=== PATIENT | female | born 1965 | race Caucasian/White ===

== ENCOUNTER 2019-03-14 12:09 | Outpatient (CLI) | payer OTHER ==
--- NOTE | 2019-03-14 15:01 | CT ---
CT TEMPORAL BONE WITHOUT CONTRAST: INDICATIONS: Left side hearing loss. Otitis externa. COMPARISON: No prior imaging comparison. FINDINGS: Right temporal bone: The vestibular cochlear apparatus and semicircular canals are unremarkable. The intratemporal course of the facial nerve is normal in appearance. The ossicular chain is intact. No significant middle ear opacification. The mastoid air cells are patent. The vestibular and cochlear a queducts are of normal caliber. Mild debris is seen at the external auditory canal. Left temporal bone: The vestibular cochlea apparatus and semicircular canals are grossly unremarkabl e. There is a moderate mastoid effusion and there is mild opacification of the middle ear cavity. Fin dings do partially obstruct visualization of the course of the intratemporal facial nerve. The ossicu lar chain is intact. There is thickening and retraction of the tympanic membrane. Soft tissue thicken ing of the lining of the external auditory canal is present, in keeping with history of otitis joist setter a. The vestibular and cochlear aqueducts are of normal caliber. IMPRESSION: 1. Left mastoid effusion and mild opacification of the left middle ear cavity. This may relate to acu te otomastoiditis. There is also thickening of the lining of the soft tissues of the left external au ditory canal, in keeping with the clinical history of otitis externa. 2. Thickening and retraction of the tympanic membrane of the left ear. POS: C
== END 2019-03-14 12:10 | disposition home or self-care (01) ==
LOC: CT 12:09
PROVIDERS: ATTEND Otolaryngology Otolaryngic Allergy
DX: H60.392 Other infective otitis externa, left ear (principal); H72.92 Unspecified perforation of tympanic membrane, left ear; H73.892 Other specified disorders of tympanic membrane, left ear; H74.8X2 Other specified disorders of left middle ear and mastoid
CPT/HCPCS: 70480

== ENCOUNTER 2022-08-15 13:47 | Outpatient (CLI) | payer OTHER | END 2022-08-15 13:48 | disposition home or self-care (01) | LOC: BICRAD 13:47 | PROVIDERS: ATTEND Student in an Organized Health Care Education/Training Program | DX: R05.3 Chronic cough (principal) | CPT/HCPCS: 71046 ==

== ENCOUNTER 2022-09-08 13:25 | Outpatient (CLI) | payer OTHER | END 2022-09-08 13:26 | disposition home or self-care (01) | LOC: CT 13:25 | PROVIDERS: ATTEND Student in an Organized Health Care Education/Training Program | DX: R05.3 Chronic cough (principal) | CPT/HCPCS: 71260 ==

== ENCOUNTER 2022-09-15 11:35 | Outpatient (CLI) | payer OTHER | END 2022-09-15 11:36 | disposition home or self-care (01) | LOC: BICMAMMO 11:35 | PROVIDERS: ATTEND Student in an Organized Health Care Education/Training Program | DX: Z12.31 Encounter for screening mammogram for malignant neoplasm of breast (principal); Z13.820 Encounter for screening for osteoporosis; N64.89 Other specified disorders of breast; M85.80 Other specified disorders of bone density and structure, unspecified site | CPT/HCPCS: 77067; 77080 ==

== ENCOUNTER 2022-09-26 08:59 | Outpatient (CLI) | payer OTHER | END 2022-09-26 09:00 | disposition home or self-care (01) | LOC: BICULT 08:59 | PROVIDERS: ATTEND Student in an Organized Health Care Education/Training Program | DX: N64.89 Other specified disorders of breast (principal) | CPT/HCPCS: G0279 ==